=== PATIENT | female | born 1955 | race Two or more races ===

== ENCOUNTER 2024-04-17 11:27 | Inpatient (IN) | payer MEDICARE, OTHER ==
[2024-04-17] VITALS (37 sets, daily range): BP systolic 80–112; BP diastolic 53–98; TEMP 97.9–98.1; O2SAT 93–99
[~2024-04-17] VITALS: Ht 154.9 cm; Wt 50.3 kg
[2024-04-17] MEDS: IV NS 0.9% 1,000 ML BAG IV ONE ×2 (12:01→12:59)
[2024-04-17 12:18] LABS: BASOPHILS # (AUTO) 0.1 K/uL (0.0-0.2)
[2024-04-17 12:20] LABS: ALANINE AMINOTRANSFERASE 15 U/L (12-78); ALKALINE PHOSPHATASE 113 U/L (46-116); ASPARTATE AMINOTRANSFERASE 47 U/L (15-37); BILIRUBIN,DIRECT 0.3 mg/dL (0.0-0.2); BILIRUBIN,TOTAL 0.6 mg/dL (0.2-1.0); CALCIUM, SERUM 9.4 mg/dL (8.5-10.1); CARBON DIOXIDE 33 mmol/L (21-32); CHLORIDE 110 mmol/L (98-107); CREATININE 1.1 mg/dL (0.6-1.3); GLUCOSE 88 mg/dL (74-106); POTASSIUM 3.1 mmol/L (3.5-5.1); SODIUM SERUM 151 mmol/L (136-145); TOTAL PROTEIN, SERUM 6.7 g/dL (6.4-8.2); UREA NITROGEN, BLOOD 50 mg/dL (7-18)
[2024-04-17 12:22] LABS: ALBUMIN 1.3 g/dL (3.4-5.0)
[2024-04-17 12:25] LABS: EOSINOPHILS % (AUTO) 0.2 % (0.0-6.0); HEMATOCRIT 27 % (33-45); HEMOGLOBIN 8.6 g/dL (11.5-14.8); INR 1.3 (0.91-1.10); LYMPHOCYTES # (AUTO) 2.9 K/uL (0.8-4.8); LYMPHOCYTES % (AUTO) 20.6 % (20.0-44.0); MEAN CORPUSCULAR HEMOGLOBIN 27 PG (26.0-33.0); MEAN CORPUSCULAR HGB CONC 31 g/dl (31.0-36.0); MEAN CORPUSCULAR VOLUME 84 fL (82-100); MONOCYTES # (AUTO) 1.7 K/uL (0.1-1.30); MONOCYTES % (AUTO) 12.3 % (2.0-12.0); NEUTROPHILS # (AUTO) 9.1 K/uL (1.8-8.9); NEUTROPHILS % (AUTO) 65.9 % (43.0-81.0); PARTIAL THROMBOPLASTIN TIME 23.7 SEC (24.3-34.3); PLATELET COUNT (AUTO) 261 K/uL (150-450); PROTHROMBIN TIME 13.5 SECS (9.2-11.1); RED BLOOD CELL COUNT(AUTO) 3.23 MIL/uL (4.0-5.2); RED CELL DISTRIBUTION WIDTH 16.4 % (11.5-15.0); WHITE BLOOD COUNT (AUTO) 13.9 K/uL (4.3-11.0)
[2024-04-17 12:29] LABS: LACTIC ACID 4.4 mmol/L (0.4-2.0)
[2024-04-17] MEDS ORDERED: VANCOMYCIN 1 GM /D5W 250 ML PB IV ONE (12:40)
[2024-04-17 12:45] LABS: METAMYELOCYTES % 3 % (0-0); MONOCYTES % (MANUAL) 20 % (0-11.0)
[2024-04-17 12:48] LABS: BAND % (MANUAL) 6 % (0.0-5.0); MYELOCYTES % 12 % (0-0)
[2024-04-17 12:49] LABS: NEUTROPHILS % (MANUAL) 35 (42-76); PLATELET ESTIMATE ADEQUATE
[2024-04-17 12:50] LABS: LYMPHOCYTES % (MANUAL) 23 % (16-48); REACTIVE LYMPHOCYTES 1 % (0-0)
[2024-04-17] MEDS ORDERED: METO5SOL PO (12:55)
[2024-04-17] MEDS ORDERED: ONDA4VIA23 IV (12:55)
[2024-04-17] MEDS ORDERED: PANT40VI IV (12:55)
[2024-04-17] MEDS: CEFEPIME 2 GM in IV D5W 100 ML IV ONE (12:59)
[2024-04-17] MEDS ORDERED: CEFEPIME 2 GM in IV D5W 50 ML IV ONE (13:00)
[2024-04-17] MEDS: VANCOMYCIN 1 GM in IV D5W 250 ML IV ONE (13:21)
[2024-04-17] MEDS ORDERED: METOCLOPRAMIDE HCL 10 MG/2 ML VIAL ONE (14:20)
[2024-04-17] MEDS ORDERED: ACETAMINOPHEN 325 MG TABLET PO PRN (14:30)
[2024-04-17] MEDS ORDERED: hydrALAZINE HCL IV 20 MG VIAL IV PRN (14:30)
[2024-04-17] MEDS ORDERED: Z GUARD REMEDY 4 OZ OINT TP PRN (14:30)
[2024-04-17] MEDS ORDERED: MORPHINE SULFATE INJ 2 MG/ML DISP.SYRIN IV PRN (14:30)
[2024-04-17] MEDS: METOCLOPRAMIDE HCL 10 MG/2 ML VIAL IV ONE (14:40)
[2024-04-17] MEDS: PHENYLEPHRINE 50 MG in IV NS 0.9% 245 ML IV PRN ×2 (14:43→17:32)
[2024-04-17] MEDS ORDERED: TPN/PPN PER PHARMACY XX PRN (16:30)
[2024-04-17] MEDS: ENOXAPARIN SODIUM 40 MG/0.4 ML DISP.SYRIN SQ SCH (17:00)
[2024-04-17] MEDS ORDERED: MISCELLANEOUS MED 1 EA EA XX ONE (17:30)
[2024-04-17] MEDS: ALBUMIN 25% 25 GM in PREMIX 1 EA IV SCH (18:00)
[2024-04-17] MEDS: ONDANSETRON HCL/PF 4 MG/2 ML VIAL IVP PRN (18:59)
[2024-04-18] VITALS (59 sets, daily range): BP systolic 100–164; BP diastolic 51–139; TEMP 98.2–98.7; O2SAT 88–100
[2024-04-18] MEDS: CEFEPIME 2 GM in IV D5W 100 ML IV SCH (00:49)
[2024-04-18] MEDS: VANCOMYCIN 500 MG in IV D5W 100ml IV SCH (01:28)
[2024-04-18 05:00] LABS: BASOPHILS # (AUTO) 0.1 K/uL (0.0-0.2); BASOPHILS % (AUTO) 0.9 % (0.0-2.0); EOSINOPHILS % (AUTO) 0.2 % (0.0-6.0); HEMATOCRIT 21 % (33-45); LYMPHOCYTES # (AUTO) 2.5 K/uL (0.8-4.8); LYMPHOCYTES % (AUTO) 15.7 % (20.0-44.0); MEAN CORPUSCULAR HEMOGLOBIN 26 PG (26.0-33.0); MEAN CORPUSCULAR HGB CONC 31 g/dl (31.0-36.0); MEAN CORPUSCULAR VOLUME 83 fL (82-100); MONOCYTES # (AUTO) 0.8 K/uL (0.1-1.30); MONOCYTES % (AUTO) 5.2 % (2.0-12.0); NEUTROPHILS # (AUTO) 12.4 K/uL (1.8-8.9); PLATELET COUNT (AUTO) 236 K/uL (150-450); RED BLOOD CELL COUNT(AUTO) 2.58 MIL/uL (4.0-5.2); RED CELL DISTRIBUTION WIDTH 16.2 % (11.5-15.0); WHITE BLOOD COUNT (AUTO) 15.9 K/uL (4.3-11.0)
[2024-04-18 05:04] LABS: HEMOGLOBIN 6.7 g/dL (11.5-14.8)
[2024-04-18 05:38] LABS: ANISOCYTOSIS 1+; BAND % (MANUAL) 11 % (0.0-5.0); LYMPHOCYTES % (MANUAL) 16 % (16-48); METAMYELOCYTES % 2 % (0-0); MONOCYTES % (MANUAL) 8 % (0-11.0); MYELOCYTES % 11 % (0-0); NEUTROPHILS % (MANUAL) 52 (42-76); OVALOCYTES 1+; PLATELET ESTIMATE ADEQUATE
[2024-04-18 06:10] LABS: ALBUMIN 2.6 g/dL (3.4-5.0); BILIRUBIN,TOTAL 0.8 mg/dL (0.2-1.0); CALCIUM, SERUM 8.6 mg/dL (8.5-10.1); CREATININE 0.9 mg/dL (0.6-1.3); MAGNESIUM 1.9 mg/dL (1.8-2.4); PHOSPHORUS 2.7 mg/dL (2.5-4.9); TOTAL PROTEIN, SERUM 6.5 g/dL (6.4-8.2)
[2024-04-18 06:13] LABS: POTASSIUM 2.7 mmol/L (3.5-5.1)
[2024-04-18] MEDS: DEXTROSE 50%-WATER 50 ML DISP.SYRIN IVP PRN (06:40)
[2024-04-18] MEDS: POTASSIUM CL. PREMIX PERIPHER. 50 ML IV SCH ×2 (06:40→08:44)
[2024-04-18] MEDS ORDERED: IV NS 0.9% 1,000 ML IV PRN (07:30)
[2024-04-18] MEDS ORDERED: HYDROCORTISONE SOD SUCCINATE 100 MG/2 ML VIAL IV SCH (07:30)
[2024-04-18] MEDS ORDERED: POTASSIUM CHLORIDE 20 MEQ TAB.PRT.SR PO SCH (08:00)
[2024-04-18 08:08] LABS: MAGNESIUM 1.9 mg/dL (1.8-2.4); PHOSPHORUS 2.7 mg/dL (2.5-4.9)
[2024-04-18 08:39] LABS: THYROID STIMULATING HORMONE 0.86 uIU/mL (0.358-3.74)
[2024-04-18] MEDS: IV D5/0.45 NACL 1,000 ML IV SCH (08:41)
[2024-04-18] MEDS: HYDROCORTISONE SOD SUCCINATE 100 MG/2 ML VIAL IV SCH (08:43)
[2024-04-18 10:29] LABS: INR 1.3 (0.91-1.10); PARTIAL THROMBOPLASTIN TIME 34.2 SEC (24.3-34.3); PROTHROMBIN TIME 13.5 SECS (9.2-11.1)
[2024-04-18 10:30] LABS: D-DIMER 7.46 mg/L(FEU (0.17-0.50)
[2024-04-18] MEDS: MORPHINE SULFATE PF DRIP 100 MG in IV D5W 96 ML IV PRN ×2 (13:13→14:34)
[2024-04-18] MEDS: LORAZEPAM INJ 2 MG/ML VIAL IV PRN (13:28)
[2024-04-18] MEDS: SCOPOLAMINE PATCH 1 MG/72HR TD SCH (13:29)
[2024-04-18] MEDS ORDERED: PROCHLORPERAZINE EDISYLATE 10 MG/2 ML VIAL IVP PRN (15:00)
[2024-04-19] MEDS ORDERED: POTASSIUM CL. PREMIX PERIPHER. 50 ML IV SCH (07:30)
== END 2024-04-18 14:46 | disposition hospice, inpatient (51) | DRG 871 ==
LOC: ER 11:30 → ICU 15:43
PROVIDERS: ADMIT Internal Medicine; ATTEND Internal Medicine
DX: A41.9 Sepsis, unspecified organism (principal); E43 Unspecified severe protein-calorie malnutrition; I21.A1 Myocardial infarction type 2; J18.9 Pneumonia, unspecified organism; R65.21 Severe sepsis with septic shock; J96.01 Acute respiratory failure with hypoxia; C16.9 Malignant neoplasm of stomach, unspecified; C79.9 Secondary malignant neoplasm of unspecified site; D84.9 Immunodeficiency, unspecified; E87.20 Acidosis, unspecified; E87.0 Hyperosmolality and hypernatremia; D68.9 Coagulation defect, unspecified; J90 Pleural effusion, not elsewhere classified; J98.11 Atelectasis; N17.9 Acute kidney failure, unspecified; R64 Cachexia; Z66 Do not resuscitate; Z51.5 Encounter for palliative care; C50.919 Malignant neoplasm of unspecified site of unspecified female breast; I10 Essential (primary) hypertension; Z92.21 Personal history of antineoplastic chemotherapy; E88.09 Other disorders of plasma-protein metabolism, not elsewhere classified; Z79.899 Other long term (current) drug therapy; D63.8 Anemia in other chronic diseases classified elsewhere; E86.0 Dehydration; E87.6 Hypokalemia; E86.1 Hypovolemia; I48.91 Unspecified atrial fibrillation; Y95 Nosocomial condition
CPT/HCPCS: 36415; 71045-TC; 80048-TC; 80053-TC; 80061-TC; 80076-TC; 82533; 82728-TC; 82962-TC; 83540-TC; 83605-TC; 83735-TC; 83880; 84100-TC; 84155; 84165; 84439-TC; 84443-TC; 84484-TC; 85025-TC; 85396; 85730-TC; 86850-TC; 87040-TC; 87081-TC; 93307-TC; 94799-TC; A4216; A4223; G0378; J0692; J1650; J1720; J2060; J2274; J2405; J2765; J3370; J3480; J3490; J7030; J7050; J7060; P9047

== ENCOUNTER 2024-04-18 14:20 | Inpatient (IN) | payer MEDICARE, OTHER ==
[~2024-04-18 14:20] MED LIST: METO5SOL PO; ONDA4VIA23 IV; PANT40VI IV
[2024-04-18 14:50] VITALS: BP 95/64; O2SAT 85
[2024-04-18] MEDS ORDERED: PROCHLORPERAZINE EDISYLATE 10 MG/2 ML VIAL IVP PRN (16:00)
[2024-04-18] MEDS: MORPHINE SULFATE PF DRIP 100 MG in IV D5W 96 ML IV PRN (16:05)
[2024-04-18] MEDS ORDERED: LORAZEPAM INJ 2 MG/ML VIAL IV PRN (17:00)
[2024-04-18] MEDS: ONDANSETRON HCL/PF 4 MG/2 ML VIAL IV PRN (19:27)
[2024-04-18 22:00] VITALS: BP 110/67; TEMP 97.5; O2SAT 79
[2024-04-19 06:00] VITALS: BP 104/73; TEMP 97.5; O2SAT 79
[2024-04-19] MEDS: KEY,NONCONTROL,TO KEEP IN PYXI 1 EA MC ONE (10:53)
[2024-04-21] MEDS ORDERED: SCOPOLAMINE PATCH 1 MG/72HR TD SCH (14:00)
== END 2024-04-19 10:57 | DRG 871 ==
LOC: SAOV 14:20 → ICU 14:48 → HOSPICE 04-19 08:42
PROVIDERS: ADMIT Internal Medicine; ATTEND Internal Medicine
DX: A41.9 Sepsis, unspecified organism (principal); E43 Unspecified severe protein-calorie malnutrition; I21.A1 Myocardial infarction type 2; J18.9 Pneumonia, unspecified organism; J96.01 Acute respiratory failure with hypoxia; R65.21 Severe sepsis with septic shock; E87.20 Acidosis, unspecified; E87.0 Hyperosmolality and hypernatremia; D68.9 Coagulation defect, unspecified; D84.9 Immunodeficiency, unspecified; C16.9 Malignant neoplasm of stomach, unspecified; C79.9 Secondary malignant neoplasm of unspecified site; Z51.5 Encounter for palliative care; Z66 Do not resuscitate; D63.8 Anemia in other chronic diseases classified elsewhere; E86.0 Dehydration; E87.6 Hypokalemia; Z92.21 Personal history of antineoplastic chemotherapy; Z85.028 Personal history of other malignant neoplasm of stomach; Z85.3 Personal history of malignant neoplasm of breast; Z82.49 Family history of ischemic heart disease and other diseases of the circulatory system; D64.9 Anemia, unspecified; E88.09 Other disorders of plasma-protein metabolism, not elsewhere classified; Y95 Nosocomial condition
CPT/HCPCS: 94799-TC; G0378; J2274; J2405; J7060